=== PATIENT | female | born 1990 | race Caucasian/White ===

== ENCOUNTER 2020-10-22 12:34 | Outpatient (CLI) | payer OTHER | END 2020-10-22 12:35 | disposition critical access hospital (66) | LOC: EMS 12:34 | DX: R51.9 Headache, unspecified (principal); R68.84 Jaw pain; M54.2 Cervicalgia; M54.9 Dorsalgia, unspecified; R20.2 Paresthesia of skin | CPT/HCPCS: A0425; A0429 ==

== ENCOUNTER 2020-10-22 13:03 | Emergency (ER) | payer OTHER ==
[2020-10-22] MEDS ORDERED: DROPERIDOL 5 MG/2 ML VIAL IVP STA (14:22)
--- NOTE | 2020-10-22 14:26 | ED Physician Documentation ---
PD HPI FOCAL NEURO - Stated complaint Stated Complaint: R SIDE NUMBNESS - Chief complaint Chief Complaint: Neuro - History obtained from History obtained from: Patient - Additional information Additional information: 30-year-old woman with history of cataract surgery and migraines presents with headache, right-sided shoulder pain, and numbness and tingling of the face and right upper extremity. The headache started about 3 days ago. She was seen in urgent care and was felt to be related to TMJ. It does get worse if she chews. Then it was more at the TMJs, now more occipital and temporal. There is no associated nausea or light sensitivity. Starting yesterday she developed some right shoulder pain, tightness throughout the whole glenohumeral area. There is no pain with range of motion though. Today at 11:20 AM she was in her usual routine and noted numbness and tingling of the right face, upper chest wall and arm, not involving the leg. There is no weakness. Review of Systems Ten Systems: 10 systems reviewed and negative Constitutional: reports: Reviewed and negative Throat: reports: Reviewed and negative Cardiac: reports: Reviewed and negative Respiratory: reports: Reviewed and negative PD PAST MEDICAL HISTORY - Present Medications Home Medications: Ambulatory Orders Medication Instructions Recorded Confirmed SUMAtriptan [Imitrex] 25 mg PO BID PRN #10 tablet 10/22/20 - Allergies Allergies/Adverse Reactions: Allergies Allergy/AdvReac Type Severity Reaction Status Date / Time No Known Drug Allergies Allergy Verified 10/22/20 13:38 - Social History Does the pt smoke?: No Smoking Status: Never smoker Does the pt drink ETOH?: Yes Does the pt have substance abuse?: No PD ED PE NORMAL - Vitals Vital signs reviewed: Yes - General General: Alert and oriented X 3, No acute distress - HEENT HEENT: PERRL, EOMI - Neck Neck: Supple, no meningeal sign, No bony TTP - Cardiac Cardiac: RRR, No murmur - Respiratory Respiratory: No respiratory distress, Clear bilaterally - Abdomen Abdomen: Normal bowel sounds, Soft, Non tender - Back Back: No CVA TTP, No spinal TTP - Derm Derm: Normal color, Warm and dry - Neuro Neuro: Alert and oriented X 3, No motor deficit, No sensory deficit, Normal speech Eye Opening: Spontaneous Motor: Obeys Commands Verbal: Oriented GCS Score: 15 NIHSS - Time Time: 14:15 - Level of Consciousness Level of consciousness: (0) Alert, Keenly responsive LOC Questions: (0) Answers both Q's correct LOC Commands: (0) Performs both correctly - Gaze Best Gaze: (0) Normal - Visual Visual: (0) No loss - Facial Palsy Facial Palsy: (0) Normal, symmetrical movement - Motor Arms (both separate) Motor Arm (right): (0) No drift Motor Arm (left): (0) No drift - Motor Legs (both separate) Motor Leg (right): (0) No drift Motor Leg (left): (0) No drift - Limb Ataxia Limb Ataxia: (0) Absent - Sensory Sensory: (0) Normal - Best Language Best Language: (0) No aphasia - Dysarthria Dysarthria: (0) Normal - Extinction and Inattention (formally neg Extinction and inattention: (0) No abnormality - Total Score/Results Total Score/Result: 0 Results - Vitals Vitals: Vital Signs - 24 hr 10/22/20 10/22/20 10/22/20 13:03 13:17 15:15 Temperature 36.7 C 36.4 C L Heart Rate 72 78 61 Respiratory 16 19 16 Rate Blood Pressure 118/60 128/99 H 124/81 H O2 Saturation 97 99 97 Oxygen O2 Source Room air PD MEDICAL DECISION MAKING - ED course ED course: Her NIH stroke scale is 0, which is a contraindication to TPA and as such it was not given further consideration. After the administration of Haldol her tingling went away, however the headache persisted but resolved after Toradol. CT angiography of the head and neck were normal. Departure - Departure Disposition: 01 Home, Self Care Clinical Impression: Paresthesias Migraine Qualifiers: Migraine type: with aura Status migrainosus presence: with status migrainosus Intractability: not intractable Qualified Code(s): G43.101 - Migraine with aura, not intractable, with status migrainosus Condition: Good Record reviewed to determine appropriate education?: Yes Instructions: ED Headache Migraine, Imitrex Prescriptions: SUMAtriptan [Imitrex] 25 mg PO BID PRN #10 tablet PRN Reason: Headache Comments: Prescription sent electronically to [facility] in [place]. Return for new or worsening symptoms. Follow-up with your primary care physician, next available appointment.
[2020-10-22] MEDS ORDERED: IOPAMIDOL-300 50 ML VIAL ONE (14:29)
--- NOTE | 2020-10-22 15:04 | CT Report ---
PROCEDURE: ANGIO NECK W INDICATIONS: cva sx CONTRAST: IV CONTRAST: Isovue 300 ml: 80 PO CONTRAST: *NO PO CONTRAST TECHNIQUE: After the administration of intravenous contrast, 1.5 mm axial sections acquired from the aortic arch to the [place]. Coronal 3-D maximum intensity projection (MIP) and/or volume rendering ref ormats were then performed. For radiation dose reduction, the following was used: automated exposur e control, adjustment of mA and/or kV according to patient size. COMPARISON: Correlation is made with the accompanying head CT angiogram, 10/22/2020. FINDINGS: Image quality: Excellent. Carotid system: The great vessels demonstrate a conventional anatomy as they arise from the aortic a rch. The origins of the common carotid arteries appear patent. The common carotid arteries demonstr ate normal calibers and courses. The bifurcation regions appear normal bilaterally. The internal ca rotid arteries demonstrate normal caliber and course. Posterior circulation: The origins of the vertebral arteries appear patent. The more superior porti ons of the vertebral arteries demonstrate normal course and caliber. They join to form a normal appe aring basilar artery. Soft tissues: Visualized neck soft tissues demonstrate no suspicious abnormalities. The thyroid is normal in size and there are no incidental findings. Bones: No suspicious bony lesions. Visualized cervical spine appears normally aligned. IMPRESSION: No hemodynamically significant stenosis can be seen within the arteries of the neck. The estimate of stenosis included in the report of the imaging study was calculated using the NASCET method Reviewed by: Bandar Solano MD on 10/22/2020 2:03 PM [facility] Approved by: Bandar Solano MD on 10/22/2020 2:03 PM [facility] Station ID: [id number]
--- NOTE | 2020-10-22 15:05 | CT Report ---
PROCEDURE: ANGIO HEAD W/WO INDICATIONS: cva sx CONTRAST: IV CONTRAST: Isovue 300 ml: 80 PO CONTRAST: *NO PO CONTRAST TECHNIQUE: Precontrast 4.5 mm thick angled axial sections acquired from the foramen magnum to the vertex. Afte r the administration of intravenous contrast, 1 mm thick sections acquired through the [place] of [place] is. Postcontrast 4.5 mm thick sections then re-acquired from the foramen magnum to the vertex. 3-di mensional cnzhyeq-oyhruikhq-jiixpobqdf (MIP) and/or volume rendering reformats were acquired of the c entral intracranial vasculature. For radiation dose reduction, the following was used: automated ex posure control, adjustment of mA and/or kV according to patient size. COMPARISON: Correlation is made with the accompanying neck CT angiogram, 10/22/2020. FINDINGS: Image quality: There is streak artifact seen through the skull base. Anterior circulation: Intracranial internal carotid arteries are normal in size and flow. Note is m michelle of a diminutive left A1 segment, with a correspondingly robust right A1 segment. This is consider ed to be a developmental variant of no clinical consequence. The flow within the paired anterior cer ebral arteries is otherwise normal and symmetric. The flow within the middle cerebral arteries is no rmal and symmetric. The anterior communicating artery is seen. No aneurysms are seen. Posterior circulation: Visualized portions of the vertebral arteries demonstrate normal caliber, and join to form a normal appearing basilar artery. Flow within the posterior cerebral arteries is norm al and symmetric. No aneurysms are seen. CSF spaces: Ventricles are normal in size and shape. Basal cisterns are patent. No extra-axial flu id collections. Brain: No midline shift. No intracranial bleeds or masses. Carpenter-white matter interface appears int act. Skull and face: Calvarium and facial bones appear intact, without suspicious lesions. Sinuses: Visualized sinuses and mastoids are clear. IMPRESSION: No intracranial hemorrhage is seen. No significant intracranial abnormality is seen. No significant intracranial arterial abnormalities are seen. If there is strong clinical concern for a stroke, please consider a dedicated brain MRI for further e valuation (assuming that there is no contraindication to MRI). Reviewed by: Bandar Solano MD on 10/22/2020 2:04 PM [facility] Approved by: Bandar Solano MD on 10/22/2020 2:04 PM [facility] Station ID: [id number]
[2020-10-22] MEDS ORDERED: IOPAMIDOL-300 50 ML VIAL IVP ONE (15:09)
[2020-10-22 15:16] VITALS: BP 124/81
[2020-10-22] MEDS ORDERED: KETOROLAC 30 MG/ML VIAL IVP STA (15:34)
== END 2020-10-22 16:57 | disposition home or self-care (01) ==
LOC: ED 13:03
DX: G43.101 Migraine with aura, not intractable, with status migrainosus (principal); R20.2 Paresthesia of skin; M25.511 Pain in right shoulder
CPT/HCPCS: 70496; 70498; 96374; 96375; 99284; Q9967

== ENCOUNTER 2021-03-06 17:23 | Emergency (ER) | payer OTHER ==
[2021-03-06] MEDS ORDERED: DEXAMETHASONE 10 MG/ML VIAL PO STA (18:46)
[2021-03-06] MEDS ORDERED: CHERRY SYRUP 10 ML UDC PO ONE (18:46)
--- NOTE | 2021-03-06 18:47 | ED Physician Documentation ---
History of Present Illness - Stated complaint Stated Complaint: RIGHT ARM PX - Chief complaint Chief Complaint: Ext Problem - Additonal information Additional information: 30-year-old female presents emergency department for evaluation of acute right wrist pain Began this afternoon. 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 She sometimes wakes up at night and finds that her arm is numb. No swelling. No fevers. Review of Systems Constitutional: denies: Fever, Chills Eyes: reports: Loss of vision Ears: reports: Reviewed and negative Cardiac: reports: Reviewed and negative Respiratory: reports: Reviewed and negative GI: reports: Reviewed and negative Musculoskeletal: reports: Joint pain (Right wrist) Neurologic: reports: Reviewed and negative Psychiatric: reports: Reviewed and negative PD PAST MEDICAL HISTORY - Present Medications Home Medications: Ambulatory Orders Medication Instructions Recorded Confirmed SUMAtriptan [Imitrex] 25 mg PO BID PRN #10 tablet 10/22/20 - Allergies Allergies/Adverse Reactions: Allergies Allergy/AdvReac Type Severity Reaction Status Date / Time No Known Drug Allergies Allergy Verified 03/06/21 17:41 - Social History Does the pt smoke?: No Smoking Status: Never smoker Does the pt drink ETOH?: Yes Does the pt have substance abuse?: No PD ED PE EXPANDED - General General: Alert, No acute distress - Extremities Extremities: Right wrist (no swelling, deformity. bilateral thenar eminence normal withotu atrophy. + phalens Right wrist. normal consulting property manager and grasp. normal strength at wrist, elbow and shoulders) Results - Vitals Vitals: Vital Signs - 24 hr 03/06/21 17:39 Temperature 36.3 C L Heart Rate 65 Respiratory 16 Rate Blood Pressure 139/84 H O2 Saturation 99 Oxygen O2 Source Room air PD MEDICAL DECISION MAKING - ED course Complexity details: considered differential, d/w patient ED course: 30-year-old female presents emergency department for evaluation of acute right wrist pain that radiates up her forearm today. No recent falls or trauma no swelling or erythema. 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 She does have a positive Phalen's in the ulnar distribution. History and exam is consistent with acute carpal tunnel. She was given a wrist splint to wear at night advised ibuprofen and Tylenol as well as stretching exercises. Encourage close follow-up with primary care provider. If symptoms worsen may benefit from physical therapy or if more severe referral to hand surgeon. Departure - Departure Disposition: 01 Home, Self Care Clinical Impression: Carpal tunnel syndrome of right wrist Condition: Stable Record reviewed to determine appropriate education?: Yes Instructions: Carpal Tunnel Syndrome, ED Carpal Tunnel Comments: You were seen in the emergency department today for pain in your right wrist that radiates up the arm. Your history and exam is consistent with carpal tunnel syndrome. It is important that you wear the wrist splint given to you at night to help prevent flexion of the wrist which can worsen this condition. You were given a one-time dose of Decadron here in the ER which should help over the next 12 to 72 hours. In general would like you to take Tylenol 500 mg with food 2-3 times a day or alternatively ibuprofen 600 mg with food 2-3 times a day. Please look up carpal tunnel stretching exercises which many people find helpful. Please discuss this ED visit with your primary care doctor. If your symptoms persist or worsen you may benefit from referral to physical therapy or if they become severe you may need referral to a hand surgeon to discuss carpal tunnel release surgery.
[2021-03-06 19:03] VITALS: BP 131/83
== END 2021-03-06 19:03 | disposition home or self-care (01) ==
LOC: ED 17:23
DX: G56.01 Carpal tunnel syndrome, right upper limb (principal)
CPT/HCPCS: 99282; 99283; A9270

== ENCOUNTER 2021-04-05 18:00 | Emergency (ER) | payer OTHER ==
[2021-04-05 18:08] VITALS: BP 128/82
--- NOTE | 2021-04-05 19:36 | ED Physician Documentation ---
History of Present Illness - Stated complaint Stated Complaint: DIZZINESS,LIGHTHEAD - Chief complaint Chief Complaint: Neuro - Additonal information Additional information: 30-year-old female presents emergency department for evaluation of a right-sided frontal headache with associated light sensitivity. Headache began about 2 to 3 days ago. She does have some nausea but no vomiting. Denies abdominal pain dysuria urgency or frequency. She did state that about a week ago she had a low-grade temperature elevation of 99.9. Rapid Covid test at home was negative. Patient is somewhat anxious. Reports that her went on deployment and she just wants to make sure that she is okay as she has kids to care for her at home. Review of Systems Constitutional: reports: Fever. denies: Chills Eyes: reports: Photophobia Ears: reports: Reviewed and negative Nose: reports: Reviewed and negative Throat: reports: Reviewed and negative Cardiac: reports: Reviewed and negative Respiratory: reports: Reviewed and negative GI: reports: Reviewed and negative Skin: reports: Reviewed and negative Neurologic: reports: Headache Psychiatric: reports: Anxiety Endocrine: reports: Reviewed and negative PD PAST MEDICAL HISTORY - Present Medications Home Medications: Ambulatory Orders Medication Instructions Recorded Confirmed SUMAtriptan [Imitrex] 25 mg PO BID PRN #10 tablet 10/22/20 - Allergies Allergies/Adverse Reactions: Allergies Allergy/AdvReac Type Severity Reaction Status Date / Time No Known Drug Allergies Allergy Verified 04/05/21 18:08 - Social History Does the pt smoke?: No Smoking Status: Never smoker Does the pt drink ETOH?: Yes Does the pt have substance abuse?: No PD ED PE NORMAL - General General: Alert and oriented X 3, No acute distress, Well developed/nourished - HEENT HEENT: Atraumatic, Ears normal, Moist mucous membranes, Pharynx benign - Neck Neck: Supple, no meningeal sign, No adenopathy - Cardiac Cardiac: RRR, No murmur, No gallop - Respiratory Respiratory: No respiratory distress, Clear bilaterally - Abdomen Abdomen: Normal bowel sounds, Soft, Non tender - Back Back: No CVA TTP - Derm Derm: Normal color, Warm and dry, No rash - Extremities Extremities: No deformity, No tenderness to palpate, Normal ROM s pain - Neuro Neuro: Alert and oriented X 3, 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 She also reports that she had a low-grade temperature elevation about 1 week ago but did test negative for Covid. She is quite anxious as her is away on deployment she wants to ensure that she is feeling well. She does have a history of migraines and this is not different from her typical pattern but the fever a week ago did concern her. On presentation she has no focal findings no neck pain. This is not the worst headache of life. Low suspicion for an infectious or subarachnoid etiology. Patient was given a liter of IV fluids as well as Compazine and Benadryl with marked improvement in her headache. Patient was then given a dose of Decadron. She is feeling better and request to be discharged home. Advise follow-up with primary care provider. Emergent return precautions otherwise discussed. Departure - Departure Disposition: 01 Home, Self Care Clinical Impression: Migraine Qualifiers: Migraine type: unspecified Status migrainosus presence: without status migrainosus Intractability: not intractable Qualified Code(s): G43.909 - Migraine, unspecified, not intractable, without status migrainosus Condition: Stable Record reviewed to determine appropriate education?: Yes Instructions: ED Headache Migraine Comments: Libia saenz were seen in the emergency department today for feeling generally unwell. Your primary concern was the headache. We did give you a liter of IV fluid as well as some Compazine and Benadryl. This is a typical regimen of medications that will usually make migraine headaches go away. I am glad that you are feeling better. I recommend that you go home tonight drink a lot of water and try and get plenty of sleep. Over the next few days I would expect your symptoms to be steadily improving. If at any point you develop a sudden severe headache, have uncontrolled vomiting, severe belly pain then please return immediately to the ER for second evaluation
[2021-04-05] MEDS ORDERED: diphenhydrAMINE INJ 50 MG/ML VIAL IVP STA (19:37)
[2021-04-05] MEDS ORDERED: PROCHLORPERAZINE 10 MG/2 ML VIAL IVP STA (19:37)
[2021-04-05] MEDS ORDERED: SODIUM CHLORIDE 0.9% 1,000 ML IV STA (19:38)
[2021-04-05] MEDS ORDERED: CHERRY SYRUP 10 ML UDC PO ONE (20:25)
[2021-04-05] MEDS ORDERED: DEXAMETHASONE 10 MG/ML VIAL PO STA (20:25)
== END 2021-04-05 21:22 | disposition home or self-care (01) ==
LOC: ED 18:00
DX: G43.909 Migraine, unspecified, not intractable, without status migrainosus (principal)
CPT/HCPCS: 96374; 99283; A9270; J1200

== ENCOUNTER 2021-04-14 12:47 | Outpatient (CLI) | payer OTHER ==
--- NOTE | 2021-04-14 13:34 | XRAY Report ---
PROCEDURE: Shoulder 3 View RT INDICATIONS: RIGHT SHOULDER PAIN TECHNIQUE: 3 views of the shoulder were acquired. COMPARISON: None. FINDINGS: Bones: No fractures or dislocations. No suspicious bony lesions. Visualized ribs appear intact. Soft tissues: No suspicious soft tissue calcifications. The visualized lung demonstrates a normal a ppearance. IMPRESSION: Normal shoulder plain films. If it would be helpful for clinical management decision making, please consider a dedicated, schedule d shoulder MRI for further evaluation (assuming that there is no contraindication). Reviewed by: Bandar Solano MD on 04/14/2021 12:32 PM [facility] Approved by: Bandar Solano MD on 04/14/2021 12:32 PM [facility] Station ID: [id number]
== END 2021-04-14 12:48 | disposition home or self-care (01) ==
LOC: DI.N 12:47
PROVIDERS: ATTEND Family Medicine
DX: M25.511 Pain in right shoulder (principal)

== ENCOUNTER 2021-04-20 14:01 | Observation (INO) | payer OTHER ==
--- NOTE | 2021-04-20 14:28 | ED Physician Documentation ---
PD HPI CHEST PAIN - Stated complaint Stated Complaint: RAPID HR/R ARM PAIN - Chief complaint Chief Complaint: Cardiac - History obtained from History obtained from: Patient - Additional information Additional information: 30-year-old woman has been having a sensation of a fast heart rate on and off for the last few days. She has an apple watch and she is noted some tachycardia's into the 120s or so but it did not alarm for any arrhythmias. Today she was working out lightly, because of the recent palpitations she was not exerting too hard but started to feel sharp right upper nonradiating chest pain that is mostly gone at this point. She was short of breath with it. Her heart rate was in the 120s with it. She does not have any identifiable risk factors for thromboembolic disease. She is on Mirena IUD, not anticoagulated, no recent travel, no hemoptysis or family history of same. She has had some mild left calf pain without swelling for the last few days. Review of Systems Ten Systems: 10 systems reviewed and negative Constitutional: reports: Weight Loss (A few pounds, not particularly intended). denies: Fever, Chills Cardiac: reports: Chest pain / pressure, Calf pain. denies: Palpitations, Pedal edema Respiratory: reports: Dyspnea. denies: Cough, Hemoptysis GI: denies: Constipation PD PAST MEDICAL HISTORY - Past Medical History Past Medical History: No - Present Medications Home Medications: Ambulatory Orders Medication Instructions Recorded Confirmed SUMAtriptan [Imitrex] 25 mg PO BID PRN #10 tablet 10/22/20 - Allergies Allergies/Adverse Reactions: Allergies Allergy/AdvReac Type Severity Reaction Status Date / Time ibuprofen Allergy Unknown Verified 04/20/21 14:10 - Social History Does the pt smoke?: No Smoking Status: Never smoker Does the pt drink ETOH?: Yes Does the pt have substance abuse?: No PD ED PE NORMAL - Vitals Vital signs reviewed: Yes - General General: Alert and oriented X 3, No acute distress - HEENT HEENT: PERRL, EOMI - Neck Neck: Supple, no meningeal sign, No bony TTP - Cardiac Cardiac: RRR, No murmur - Respiratory Respiratory: No respiratory distress, Clear bilaterally - Abdomen Abdomen: Normal bowel sounds, Soft, Non tender - Back Back: No CVA TTP, No spinal TTP - Derm Derm: Normal color, Warm and dry - Extremities Extremities: No edema, No calf tenderness / cord - Neuro Neuro: Alert and oriented X 3, Normal speech Results - Vitals Vitals: Vital Signs - 24 hr 04/20/21 04/20/21 14:07 14:21 Temperature 36.2 C L 36.5 C Heart Rate 113 H 113 H Respiratory 16 16 Rate Blood Pressure 133/92 H 133/92 H O2 Saturation 98 98 Oxygen O2 Source Room air - EKG (time done) 1414 Rate: Rate (enter#) (75) Rhythm: NSR Dubois: Normal Intervals: Normal RI QRS: Normal Ischemia: Normal ST segments - Labs Labs: Laboratory Tests 04/20/21 04/20/21 04/20/21 14:34 14:34 14:34 WBC 11.3 H RBC 4.58 Hgb 13.8 Hct 40.5 MCV 88.4 MCH 30.1 MCHC 34.1 RDW 12.8 Plt Count 330 MPV 9.5 Neut # (Auto) 9.2 H Lymph # (Auto) 1.5 [place] # (Auto) 0.5 Eos # (Auto) 0.1 Baso # (Auto) 0.0 Absolute Nucleated RBC 0.00 Nucleated RBC % 0.0 ESR D-Dimer 269.6 H Sodium 140 Potassium 3.9 Chloride 104 Carbon Dioxide 26 Anion Gap 10.0 BUN 9 Creatinine 0.7 Estimated GFR (MDRD) 97 Glucose 122 H Calcium 10.4 H Total Creatine Kinase CK-MB (CK-2) Troponin I High Sens C-Reactive Protein TSH Serum HCG, Qual Nasal Adenovirus (PCR) Nasal B. parapertussis DNA (PCR) Nasal Coronavir 229E PCR Nasal Coronavir HKU1 PCR Nasal Coronavir NL63 PCR Nasal Coronavir OC43 PCR Nasal Enterovir/Rhinovir PCR Nasal Influenza B PCR Nasal Influenza A PCR Nasal Parainfluen 1 PCR Nasal Parainfluen 2 PCR Nasal Parainfluen 3 PCR Nasal Parainfluen 4 PCR Nasal RSV (PCR) Nasal B.pertussis DNA PCR Nasal C.pneumoniae (PCR) Enoc Human Metapneumo PCR Nasal M.pneumoniae (PCR) Nasal SARS-CoV-2 (PCR) 04/20/21 04/20/21 04/20/21 14:34 14:34 14:34 WBC RBC Hgb Hct MCV MCH MCHC RDW Plt Count MPV Neut # (Auto) Lymph # (Auto) [place] # (Auto) Eos # (Auto) Baso # (Auto) Absolute Nucleated RBC Nucleated RBC % ESR D-Dimer Sodium Potassium Chloride Carbon Dioxide Anion Gap BUN Creatinine Estimated GFR (MDRD) Glucose Calcium Total Creatine Kinase CK-MB (CK-2) Troponin I High Sens 21.9 H* C-Reactive Protein TSH 0.69 Serum HCG, Qual NEGATIVE Nasal Adenovirus (PCR) Nasal B. parapertussis DNA (PCR) Nasal Coronavir 229E PCR Nasal Coronavir HKU1 PCR Nasal Coronavir NL63 PCR Nasal Coronavir OC43 PCR Nasal Enterovir/Rhinovir PCR Nasal Influenza B PCR Nasal Influenza A PCR Nasal Parainfluen 1 PCR Nasal Parainfluen 2 PCR Nasal Parainfluen 3 PCR Nasal Parainfluen 4 PCR Nasal RSV (PCR) Nasal B.pertussis DNA PCR Nasal C.pneumoniae (PCR) Enoc Human Metapneumo PCR Nasal M.pneumoniae (PCR) Nasal SARS-CoV-2 (PCR) 04/20/21 04/20/21 04/20/21 14:34 15:08 16:24 WBC RBC Hgb Hct MCV MCH MCHC RDW Plt Count MPV Neut # (Auto) Lymph # (Auto) [place] # (Auto) Eos # (Auto) Baso # (Auto) Absolute Nucleated RBC Nucleated RBC % ESR 2 D-Dimer Sodium Potassium Chloride Carbon Dioxide Anion Gap BUN Creatinine Estimated GFR (MDRD) Glucose Calcium Total Creatine Kinase 76 CK-MB (CK-2) Troponin I High Sens 22.8 H* C-Reactive Protein < 1.0 TSH Serum HCG, Qual Nasal Adenovirus (PCR) Nasal B. parapertussis DNA (PCR) Nasal Coronavir 229E PCR Nasal Coronavir HKU1 PCR Nasal Coronavir NL63 PCR Nasal Coronavir OC43 PCR Nasal Enterovir/Rhinovir PCR Nasal Influenza B PCR Nasal Influenza A PCR Nasal Parainfluen 1 PCR Nasal Parainfluen 2 PCR Nasal Parainfluen 3 PCR Nasal Parainfluen 4 PCR Nasal RSV (PCR) Nasal B.pertussis DNA PCR Nasal C.pneumoniae (PCR) Enoc Human Metapneumo PCR Nasal M.pneumoniae (PCR) Nasal SARS-CoV-2 (PCR) 04/20/21 04/20/21 16:24 16:33 WBC RBC Hgb Hct MCV MCH MCHC RDW Plt Count MPV Neut # (Auto) Lymph # (Auto) [place] # (Auto) Eos # (Auto) Baso # (Auto) Absolute Nucleated RBC Nucleated RBC % ESR D-Dimer Sodium Potassium Chloride Carbon Dioxide Anion Gap BUN Creatinine Estimated GFR (MDRD) Glucose Calcium Total Creatine Kinase CK-MB (CK-2) 1.2 Troponin I High Sens 21.3 H* C-Reactive Protein TSH Serum HCG, Qual Nasal Adenovirus (PCR) NOT DETECTED Nasal B. parapertussis DNA (PCR) NOT DETECTED Nasal Coronavir 229E PCR NOT DETECTED Nasal Coronavir HKU1 PCR NOT DETECTED Nasal Coronavir NL63 PCR NOT DETECTED Nasal Coronavir OC43 PCR NOT DETECTED Nasal Enterovir/Rhinovir PCR NOT DETECTED Nasal Influenza B PCR NOT DETECTED Nasal Influenza A PCR NOT DETECTED Nasal Parainfluen 1 PCR NOT DETECTED Nasal Parainfluen 2 PCR NOT DETECTED Nasal Parainfluen 3 PCR NOT DETECTED Nasal Parainfluen 4 PCR NOT DETECTED Nasal RSV (PCR) NOT DETECTED Nasal B.pertussis DNA PCR NOT DETECTED Nasal C.pneumoniae (PCR) NOT DETECTED Enoc Human Metapneumo PCR NOT DETECTED Nasal M.pneumoniae (PCR) NOT DETECTED Nasal SARS-CoV-2 (PCR) NOT DETECTED PD MEDICAL DECISION MAKING - ED course ED course: 30-year-old woman presents with right upper chest pain after having some tachycardias over the last few days. Her EKG is nonischemic but she was found to have mildly elevated high-sensitivity troponin which trended up very slightly on a 2nd rapid quick draw. TSH was normal. D-dimer positive but CT angiography of the chest was negative. Her chest pain was very mild, but given the elevated troponins I did discuss the case with Dr. Wong at [facility] who recommended further testing including but not limited to CK, CK-MB, further trending of the troponins, ESR/CRP to evaluate for inflammatory/autoimmune states, and COVID testing to evaluate for potential myocarditis. Recommended the patient be placed in observation for evaluation and I spoke with Dr. Levy for this at 4:28 PM. Departure - Departure Disposition: ED Place in Observation Clinical Impression: Tachycardia, Chest pain, Elevated troponin Condition: Stable Discharge Date/Time: 04/20/21 17:45
[2021-04-20 14:39] LABS: BASOPHILS % (AUTO) 0.3 %; EOSINOPHILS # (AUTO) 0.1 10^3/uL (0.0-0.7); EOSINOPHILS % (AUTO) 0.4 %; HCT - HEMATOCRIT 40.5 % (37.0-47.0); HGB - HEMOGLOBIN 13.8 g/dL (12.0-16.0); LYMPHOCYTES # (AUTO) 1.5 10^3/uL (1.5-3.5); LYMPHOCYTES % (AUTO) 13.6 %; MEAN CORPUSCULAR HEMOGLOBIN 30.1 pg (27.0-31.0); MEAN CORPUSCULAR HGB CONC 34.1 g/dL (32.0-36.0); MEAN CORPUSCULAR VOLUME 88.4 fL (81.0-99.0); MEAN PLATELET VOLUME 9.5 fL (7.9-10.8); MONOCYTES # (AUTO) 0.5 10^3/uL (0.0-1.0); NEUTROPHILS # (AUTO) 9.2 10^3/uL (1.5-6.6); NEUTROPHILS % (AUTO) 81.4 %; PLT - PLATELET COUNT 330 10^3/uL (130-450); RED BLOOD COUNT 4.58 10^6/uL (4.20-5.40); RED CELL DISTRIBUTION WIDTH 12.8 % (12.0-15.0); WHITE BLOOD COUNT 11.3 x10^3/uL (4.8-10.8)
[2021-04-20 14:52] LABS: CALCIUM 10.4 mg/dL (8.5-10.3); CREATININE 0.7 mg/dL (0.4-1.0); POTASSIUM 3.9 mmol/L (3.5-5.0)
--- NOTE | 2021-04-20 14:55 | XRAY Report ---
PROCEDURE: Chest 1 View X-Ray INDICATIONS: chest pain TECHNIQUE: One view of the chest was acquired. COMPARISON: None. FINDINGS: Surgical changes and devices: None. Lungs and pleura: No pleural effusions or pneumothorax. Lungs are clear. Mediastinum: Mediastinal contours appear normal. Heart size is normal. Bones and chest wall: No suspicious bony lesions. Overlying soft tissues appear unremarkable. IMPRESSION: Normal portable chest. Reviewed by: Bandar Solano MD on 04/20/2021 1:53 PM [facility] Approved by: Bandar Solano MD on 04/20/2021 1:53 PM [facility] Station ID: [id number]
[2021-04-20] MEDS ORDERED: IOVERSOL 320 100 ML VIAL IVP ONE ×2 (15:12→15:30)
--- NOTE | 2021-04-20 15:38 | CT Report ---
PROCEDURE: ANGIO CHEST W/WO INDICATIONS: CP, high dimer, pe protocol CONTRAST: IV CONTRAST: Optiray 320 ml: 80 PO CONTRAST: *NO PO CONTRAST TECHNIQUE: After the administration of intravenous contrast, 2 mm axial images were acquired from the pulmonary apices to the posterior costophrenic angles during the arterial phase. In addition, 1 mm lung kernel and 5 mm soft tissue kernel reconstructions were performed. 3-dimensional coronal oblique maximum int ensity projection (MIP) reformats, 8 mm axial MIP, and 5 mm coronal and sagittal MPR reformats were t hen performed through the thorax. For radiation dose reduction, the following was used: automated exp osure control, adjustment of mA and/or kV according to patient size. COMPARISON: Correlation is made with the accompanying chest radiograph, 04/20/2021. FINDINGS: Image quality: Excellent. Pulmonary arteries: Pulmonary arteries are normal in size, and demonstrate no intraluminal filling d efects to suggest central pulmonary embolism. Lungs and pleura: Lungs are clear. No pleural effusions or pneumothorax. Central and peripheral ai rways are patent. Mediastinum: Heart size is normal, without pericardial effusion. No mediastinal or hilar adenopathy . Thoracic aorta is normal in caliber and enhancement. Esophagus is normal in caliber, without hiat al hernia. Bones and chest wall: No suspicious bony lesions. Ribs and thoracic spine appear intact throughout. No axillary or supraclavicular adenopathy. The thyroid is normal in size and there are no incident al findings. Abdomen: An accessory splenule is incidentally noted along the hilum of the primary spleen. Visua lized upper abdominal solid organs appear normal in the early arterial phase of enhancement. IMPRESSION: Negative for pulmonary motion. Clear lungs. Incidental note is made of: Accessory splenule Reviewed by: Bandar Solano MD on 04/20/2021 2:[address] [facility] Approved by: Bandar Solano MD on 04/20/2021 2:[address] [facility] Station ID: [id number]
[2021-04-20] MEDS ORDERED: ASPIRIN CHEW 81 MG TABLET PO STA (15:48)
[2021-04-20 16:27] LABS: HCG,QUALITATIVE BLOOD NEGATIVE
[2021-04-20] MEDS ORDERED: ACETAMINOPHEN 325 MG TABLET PO PRN (16:34)
[2021-04-20] MEDS ORDERED: SODIUM CHLORIDE FLUSH 0.9% 10 ML SYRINGE IVP PRN (16:34)
[2021-04-20] MEDS ORDERED: SUMAtriptan 25 MG TABLET PO PRN (16:39)
--- NOTE | 2021-04-20 16:44 | HISTORY & PHYSICAL EXAMINATION ---
Chief Complaint - Chief Complaint Chief Complaint: PAlpitations History of Present Illness - Admitted From Admitted From:: ED - History Obtained From History obtained from: ED provoder and the patient - History of Present Illness HPI Comment/Other: This is a 30 y/o female with Hx of migraines on prn Imitrex. For the last 2 days she noticed resting tachycardia several times on her Apple watch, HR 120-130. There were no sx of pain, SOB or lightheadedness during these. She went to [facility] usual gym work-out today and noticed R upper chest wall pressure and more SOB than usual. She presented to the ED. She was in sinus tach at rate 110 and had normal BP. Her TSH was normal and test neg. Her D-dimer was mildly elevated and there was mild calf pain, thus she had a CTA which was neg for PE. The ED provider called Cardiology at [facility] and it was recommended that she have a W/U for auto-immune disease and have telemetry monitoring, an Echo and a stress test. She is being placed in Observation status for these. History - Past Medical History Cardiovascular: reports: None Respiratory: reports: None Neuro: reports: Migraines Endocrine/Autoimmune: reports: None GI: reports: None PLUG WIRER: reports: None : reports: None HEENT: reports: None Psych: reports: None Musculoskeletal: reports: None Derm: reports: None Meds/Allgy - Home Medications Home Medications: Ambulatory Orders Medication Instructions Recorded Confirmed SUMAtriptan [Imitrex] 25 mg PO BID PRN #10 tablet 10/22/20 - Allergies Allergies/Adverse Reactions: Allergies Allergy/AdvReac Type Severity Reaction Status Date / Time ibuprofen Allergy Unknown Verified 04/20/21 14:10 Review of Systems - Cardiovascular Cariovascular: reports: Palpitations, Chest pain, Exertional dyspnea - Respiratory Respiratory: reports: SOB with exertion - All Other Systems All Other Systems: reports: Reviewed and negative Exam - Vital Signs Vital Signs: Vital Signs x48h Temp Pulse Resp BP Pulse Ox 04/20/21 14:21 36.5 C 113 H 16 133/92 H 98 04/20/21 14:07 36.2 C L 113 H 16 133/92 H 98 Conclusion/Plan - Problem List (1) Tachycardia Conclusion/Plan: Will monitor her for arrhythmias on telemetry. We will obtain an Echocardiogram (but today is Thursday night and we have no Echo service available here till Thursday morning). (2) Chest pain Conclusion/Plan: The work-up for connective tissue disease was sent off from the ER, as was recommended by the service unit operator oil well to the ED provider. We will monitor for chest pain and evaluate her while she is having it. We will obtain an Echocardiogram to rule out pericarditis (but today is Thursday and we do not have the service available till Thursday). We will plan a stress test (but today is Thursday and we do not have the service available till Thursday). (3) Hx of migraines Conclusion/Plan: This diagnosis is associated with a higher incidence of PFO than the usual 20% that is found in the population. Will therefore check for PFO during her Echo exam, using bubble study. We will continue the as needed Imitrex order. - Lab Results Fish Bones: 04/20/21 14:34 04/20/21 14:34
[2021-04-20 16:48] LABS: CK- CREATINE KINASE 76 IU/L (22-269)
[2021-04-20 16:50] LABS: CREATINE KINASE MB 1.2 ng/mL (0.6-6.3)
[2021-04-20 16:51] LABS: CRP - C-REACTIVE PROTEIN < 1.0 mg/dL (0-1.0)
[2021-04-20 16:53] LABS: TROPONIN I HIGH SENSITIVITY 21.3 ng/L (2.3-14.8)
[2021-04-20 16:54] LABS: BILIRUBIN,URINE NEGATIVE (NEGATIVE); GLUCOSE, URINE (UA) NEGATIVE (NEGATIVE); KETONES,URINE (UA) NEGATIVE (NEGATIVE); LEUKOCYTE ESTERASE, URINE NEGATIVE (NEGATIVE); NITRITE,URINE NEGATIVE (NEGATIVE); OCCULT BLOOD,URINE NEGATIVE (NEGATIVE); PH,URINE 7.5 PH (5.0-7.5); PROTEIN,URINE NEGATIVE (NEGATIVE); UROBILINOGEN,URINE 0.2 (NORMAL) E.U./dL (NORMAL)
[2021-04-20 16:59] LABS: CLARITY,URINE CLEAR (CLEAR); HCG UR QUAL NEGATIVE
[2021-04-20 17:33] LABS: B. PARAPERTUSSIS- RESP PCR PAN NOT DETECTED; B. PERTUSSIS- RESP PCR PANEL NOT DETECTED; C. PNEUMONIAE- RESP PCR PANEL NOT DETECTED; CORONAVIRUS 229E-RESP PCR NOT DETECTED; CORONAVIRUS HKU1-RESP PCR NOT DETECTED; CORONAVIRUS NL63-RESP PCR NOT DETECTED; CORONAVIRUS OC43-RESP PCR NOT DETECTED; HUMAN METAPNEUMOVIRUS NOT DETECTED; INFLUENZA A- RESP PCR PANEL NOT DETECTED; INFLUENZA B - RESP PCR PANEL NOT DETECTED; M. PNEUMONIAE- RESP PCR PANEL NOT DETECTED; PARAINFLUENZA VIRUS 1 NOT DETECTED; PARAINFLUENZA VIRUS 2 NOT DETECTED; PARAINFLUENZA VIRUS 3 NOT DETECTED; PARAINFLUENZA VIRUS 4 NOT DETECTED; RHINOVIRUS/ENTEROVIRUS NOT DETECTED; RSV- RESP PCR PANEL NOT DETECTED; SARS-CoV-2 -RESP PCR PANEL NOT DETECTED
[2021-04-20] MEDS: SODIUM CHLORIDE FLUSH 0.9% 10 ML SYRINGE IVP SCH (19:23)
[2021-04-21] MEDS: SODIUM CHLORIDE FLUSH 0.9% 10 ML SYRINGE IVP SCH ×2 (01:50→07:52)
[2021-04-21 07:24] VITALS: BP 127/77
--- NOTE | 2021-04-21 08:20 | Discharge Plan ---
Discharge Plan Problem Reviewed?: Yes Disposition: Home, Self Care Condition: Stable Diet: Regular Activity Restrictions: No Restrictions Shower Restrictions: No Driving Restrictions: No Instruction Topics: Heart Palpitations Health Concerns: You were monitored in the hospital on telemetry heart monitoring to watch for a fast heart rhythm, and no abnormal findings were seen on telemetry monitoring. I suspect that you saw the fast heart rates on your Apple watch because you were still dehydrated and feeling the affects of the gastroenteritis that you had a week ago (that gave you nausea and diarrhea). Please drink extra fluids for the next 2-3 days to rehydrate. You should see your Primary Care Provider in the next week, for a hospital follow-up visit, and to get an order for having an outpatient Echocardiogram. Plan of Treatment: As above. Care Goals: Improvement in symptoms and stabilization are the goals. Assessment: The patient understands and is agreeable with the plan. Additional Instructions or Follow Up instructions: If you have new or worsening symptoms, call your PCP for advice or come to the ED. No Smoking: If you smoke, Please STOP! Call for help. Follow-up with: Serene Montes ARNP [Primary Care Provider] -
--- NOTE | 2021-04-21 10:30 | DISCHARGE SUMMARY ---
Discharge Summary Admit Date: 04/20/21 Discharge Date: 04/21/21 Discharging Provider: Dr Marta Levy Primary Care Provider: MIGUEL Montes Code Status: Attempt Resuscitation Condition at Discharge: Stable Discharge Disposition: 01 Home, Self Care - HPI History of Present Illness: This is a 30 y/o female with Hx of migraines on prn Imitrex. For the last 2 days she noticed resting tachycardia several times on her Apple watch, HR 120-130. There were no sx of pain, SOB or lightheadedness during these. She did give a Hx of recent 1 week of nausea and diarrhea. She resumed her usual gym work-out today and noticed R upper chest wall pressure and more SOB than usual. She therefore presented to the ED. She was in sinus tach at rate 110 and had normal BP. Her TSH was normal and test neg. Her D-dimer was mildly elevated and there was mild calf pain, thus she had a CTA which was neg for PE. The ED provider called Cardiology at [facility] and it was recommended that she have a W/U for auto-immune disease and have telemetry monitoring, an Echo and possibly a stress test. She is being placed in Observation status for these. - HOSPITAL COURSE Hospital Course: (1) Tachycardia We monitored her for arrhythmias on telemetry and there was nothing unusual seen. We ordered an Echocardiogram (but she was here Thursday night and Sun, and we have no Echo service available then). Most likely she was still dehydrated from the 1 week of gastroenteritis-like symptoms. She was advised to stay hydrated and see her PCP for follow-up in the upcoming week for further testing. (2) Chest pain The work-up for connective tissue disease was sent off from the ER, as was recommended by the Hotel Recreational Facilities Manager to the ED provider. They are send out tests and were pending at discharge. Her troponins and EKG were not significant. We monitored her for chest pain and she had none. We ordered the Echo, to look for pericarditis, but no Echo could be done (no Echo service available). (We also do not have stress testing service available on weekends, when she was here). (3) Hx of migraines This diagnosis is associated with a higher incidence of PFO than the usual 20% that is found in the general population. We therefore ordered for a PFO eval du ring the Echo exam, by ordering a "bubble" study, but there was no Echo service available. We continued the prn Imitrex order. - ALLERGIES Allergies/Adverse Reactions: Allergies Allergy/AdvReac Type Severity Reaction Status Date / Time ibuprofen Allergy Unknown Verified 04/20/21 14:10 - MEDICATIONS Home Medications: Ambulatory Orders Medication Instructions Recorded Confirmed SUMAtriptan [Imitrex] 25 mg PO BID PRN #10 tablet 10/22/20 - PHYSICAL EXAM AT DISCHARGE General Appearance: positive: No acute distress, Alert Eyes Bilateral: positive: Normal inspection, EOMI ENT: positive: ENT inspection nml, No signs of dehydration Neck: positive: Nml inspection, Thyroid nml, No JVD Respiratory: positive: Chest non-tender, No respiratory distress, Breath sounds nml Cardiovascular: positive: Regular rate & rhythm, No murmur Abdomen: positive: Non-tender, Nml bowel sounds, No distention Skin: positive: Warm, Dry Extremities: positive: Non-tender, No pedal edema Neurologic/Psychiatric: positive: Oriented x3 (Non-focal) - LABS Result Diagrams: 04/20/21 14:34 04/20/21 14:34 - DIAGNOSTIC IMAGING Diagnostic Imaging Results: Final report reviewed - FOLLOW UP Follow Up: See PCP in several days, further testing advised. - TIME SPENT Time Spent in Discharge (Minutes): 30
== END 2021-04-21 10:50 | disposition home or self-care (01) ==
LOC: EDSEX → ED 14:01 → EDSEX 16:34 → MS2 16:34
PROVIDERS: ADMIT Internal Medicine; ATTEND Internal Medicine
DX: R00.0 Tachycardia, unspecified (principal); R06.02 Shortness of breath; R07.9 Chest pain, unspecified; R77.8 Other specified abnormalities of plasma proteins; M79.601 Pain in right arm; M79.669 Pain in unspecified lower leg; G43.909 Migraine, unspecified, not intractable, without status migrainosus; Z20.822 Contact with and (suspected) exposure to COVID-19; Z32.02 Encounter for pregnancy test, result negative; Z88.6 Allergy status to analgesic agent
CPT/HCPCS: 0202U; 36415; 71045; 71275; 80048; 81003; 81025; 82550; 82553; 84443; 84484; 84703; 85025; 85379; 85651; 86140; 93005; 99284; 99285; A9270; G0378; Q9967; 81001; 87086

== ENCOUNTER 2021-04-25 11:01 | Outpatient (CLI) | payer OTHER ==
[2021-04-25 18:09] LABS: CALCIUM 9.5 mg/dL (8.5-10.3); URIC ACID 3.9 mg/dL (2.6-7.2)
== END 2021-04-25 11:02 | disposition home or self-care (01) ==
LOC: LAB.N 11:01 → EDSEX 11:01 → LAB.N 11:02
PROVIDERS: ATTEND Registered Nurse
DX: E83.52 Hypercalcemia (principal); M79.674 Pain in right toe(s)
CPT/HCPCS: 36415; 82310; 84550

== ENCOUNTER 2021-05-01 08:00 | Outpatient (CLI) | payer OTHER ==
[2021-05-01 18:00] LABS: BASOPHILS % (AUTO) 0.4 %; EOSINOPHILS # (AUTO) 0.1 10^3/uL (0.0-0.7); EOSINOPHILS % (AUTO) 1.1 %; HCT - HEMATOCRIT 39.6 % (42.0-52.0); HGB - HEMOGLOBIN 13.2 g/dL (14.0-18.0); LYMPHOCYTES # (AUTO) 1.8 10^3/uL (1.5-3.5); LYMPHOCYTES % (AUTO) 25.1 %; MEAN CORPUSCULAR HEMOGLOBIN 29.7 pg (27.0-31.0); MEAN CORPUSCULAR HGB CONC 33.3 g/dL (32.0-36.0); MEAN PLATELET VOLUME 10.4 fL (7.4-11.4); MONOCYTES # (AUTO) 0.5 10^3/uL (0.0-1.0); MONOCYTES % (AUTO) 6.6 %; NEUTROPHILS # (AUTO) 4.7 10^3/uL (1.5-6.6); NEUTROPHILS % (AUTO) 66.7 %; PLT - PLATELET COUNT 339 10^3/uL (130-450); RED BLOOD COUNT 4.45 10^6/uL (4.70-6.10); RED CELL DISTRIBUTION WIDTH 12.9 % (12.0-15.0)
[2021-05-01 21:31] LABS: ALBUMIN 4.5 g/dL (3.2-5.5); ALBUMIN/GLOBULIN RATIO 1.7 (1.0-2.2); BILIRUBIN,TOTAL 0.5 mg/dL (0.2-1.0); CALCIUM 9.7 mg/dL (8.5-10.3); CREATININE 0.6 mg/dL (0.6-1.2); TOTAL PROTEIN 7.1 g/dL (6.7-8.2)
[2021-05-01 21:42] LABS: THYROID STIMULATING HORMONE 0.82 uIU/mL (0.34-5.60)
== END 2021-05-01 23:59 | disposition home or self-care (01) ==
LOC: EDSEX → LAB.N 08:00
PROVIDERS: ATTEND Physician Assistant Medical
DX: R20.2 Paresthesia of skin (principal)
CPT/HCPCS: 36415; 80050; 82330; 82607

== ENCOUNTER 2021-05-16 11:42 | Outpatient (CLI) | payer OTHER | END 2021-05-16 11:43 | disposition home or self-care (01) | LOC: LAB.N 11:42 | PROVIDERS: ATTEND Registered Nurse | DX: G43.909 Migraine, unspecified, not intractable, without status migrainosus (principal); R20.2 Paresthesia of skin | CPT/HCPCS: 36415; 86038; 86140 ==

== ENCOUNTER → 2021-06-04 | Outpatient (CLI) | payer OTHER | LOC: LAB.N 08:00 | PROVIDERS: ATTEND Nurse Practitioner | DX: T58.94XA Toxic effect of carbon monoxide from unspecified source, undetermined, initial encounter (principal) | CPT/HCPCS: 81599; 82375 ==

== ENCOUNTER 2021-06-11 09:36 | Outpatient (CLI) | payer OTHER ==
--- NOTE | 2021-06-11 11:10 | CARDIAC PROCEDURE NOTE ---
Stress Test Report Service Date: 06/11/21 Service Time: 11:00 Ordering Provider: Serene Montes FNP-C Indication for Test: Assess mildly elevated troponin levels detected in the setting of upper right chest discomfort, tachycardia and possible dehydration. Significant Medical History: Migdalia has a history of migraine headaches, with intermittent use of Imitrex. She tells me that there has been concern for a home furnace dysfunction of unkn own duration with possible carbon monoxide exposure, that was corrected last week. 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 Thus her stress level is chronically increased. -Within this setting in late March she experienced episodic symptoms that included palpitations, reading of elevated heart rate on her iWatch and intermittent right upper chest discomfort, for which she was seen at our Emergency Department on 04/20/2021. Her EKG did not appear ischemic, but 3 separate measurements of troponin revealed mild elevation, in the range of 2123 (upper limit normal 14.8) during overnight observation. Rhythm monitoring revealed intermittent sinus tachycardia, with concern that some of these findings may have been due to mild dehydration secondary to recent acute GI illness. Some of these symptoms recurred periodically, but she states that since correction of the carbon monoxide problem with her furnace last week she has felt entirely at her normal baseline, with decrease in fatigue, normal heart rates on her iWatch and none of the nonspecific symptoms that were present at the time of her evaluation on April 20 and rarely following that date. Cardiac Risk Factors: Migdalia reports intermittent elevation of blood pressure without diagnosis of hypertension; she denies history of hyperlipidemia, diabetes, tobacco smoking ever and family history of coronary artery disease. Type of Stress Test: ETT with Myocardial Perfusion Imaging Procedure: -Exercise Treadmill Test- After signing informed consent, the patient underwent resting SPECT imaging and then performed treadmill exercise using a Rafiq protocol. The patient exercised for 7 minutes 20 seconds and achieved a peak heart rate of 174 (93 percent predicted maximum heart rate for age), and an estimated workload of 9.1 METS. The test was terminated due to fatigue/shortness of breath. Resting heart rate: 82 Peak heart rate: 174 Normal response to exercise. Resting BP: 134/81 Peak BP: 168/75 Normal response of systolic and diastolic BP to exercise. Rhythm during exercise: Sinus rhythm throughout. Symptoms: She denies chest discomfort, lightheadedness and paresthesias. EKG at rest showed normal sinus rhythm with mild sinus arrhythmia. EKG at peak stress showed >1.[address] depression in leads II, III, aVF and V5, assessed as meeting EKG criteria for borderline ischemia. In Recovery HR and BP returned normally to near baseline resting levels. Nuclear imaging performed at rest and with stress and interpretation will be reported separately. IAntwon MD, was present throughout this treadmill stress study and supervised it in its entirety. Summary: 1) Exercise tolerance moderately reduced for age and sex, as evidenced by JESSICA of 22.3%. 2) Normal resting EKG. 3) Adequate level of exercise was achieved on this treadmill stress test. 4) Normal BP response to exercise. 5) Borderline ischemic changes by EKG criteria were seen at peak stress. 6) Analysis of gated nuclear images reveals normal left ventricular size and systolic function; on-site SPECT analysis reveals a small stress-associated apical defect with imaging in the supine position that is not seen with prone imaging, with normal perfusion of the left ventricle at rest, findings most consistent with breast attenuation artifact in the supine position. Formal Radiology review concludes that the defect is present on imaging at stress (supine position) and at rest, with similar attribution to tissue artifact. See separate report for more detail. CONCLUSIONS: 1) Likely a low risk Rafiq protocol mycardial perfusion imaging study, given favorable hemodynamic response to exercise and no report of symptoms concerning for ischemia. Borderline ST depression could be due to high incidence of non- specific ST depression observed in women. 2) A small apical perfusion defect seen upon stress imaging in the supine position most likely represents breast attenuation artifact and does not suggest ischemia.
--- NOTE | 2021-06-11 16:20 | Nuclear Medicine Report ---
PROCEDURE: Rest and exercise myocardial perfusion SPECT with gated imaging and ejection fraction INDICATIONS: ELEVATED TROPONIN, CHEST PAIN RADIOPHARMACEUTICAL: 9.7 mCi Tc-99m Myoview IV at rest and 32.7 mCi Tc-99m Myoview IV at peak exerci se. [id number] was performed. TECHNIQUE: Radiopharmaceutical was injected at peak stress test, and also at rest. SPECT images wer e obtained. SPECT myocardial perfusion images were displayed in short axis, horizontal long axis, an d vertical long axis views. Gated images were reviewed using [employer] software. COMPARISON: None available. FINDINGS: Raw data: There is good myocardial labeling by radiotracer. No significant motion artifacts. Lung- to-heart ratio is 0.42 (normal is less than 0.46 for tetrafosmin tracer). Left ventricle function: Gated images demonstrate normal left ventricle wall thickening. No segment al wall motion abnormality. No transient ischemic dilation. The left ventricle resting end-diastolic volume is normal. Left ventricle stress ejection fraction is >70%; normal values are above 45%. Myocardial perfusion: There is a small, mild, primarily fixed defect in the distal anterior wall and apex, most likely secondary to breast attenuation and shifting breast artifacts. There is otherwise normal distribution of activity in the left and right ventricular myocardium. IMPRESSION: 1. Probably normal myocardial perfusion images. There is a small, mild, primarily fixed defect in the distal anterior wall and apex, most likely likely secondary to breast attenuation and shifting breas t artifacts. No convincing evidence for myocardial ischemia or infarct. 2. Moderate left ventricular volume and systolic function. 3. Please correlate with stress EKG result. PQRS ATTESTATIONS: Measure 322 - Is this imaging test primarily performed on a low-risk surgery patient for preoperative evaluation within 30 days preceding their low-risk non-cardiac surgery? Low-risk surgery is defined as cardiac or myocardial infarction less than 1%, including (but not limited to) endoscopic pr ocedures, superficial procedures, cataract surgery, and excisional breast surgery: Answer: No Measure 323 - Is this imaging test performed primarily for the monitoring of an asymptomatic patient who had percutaneous coronary intervention on the visit date or within 2 years of the visit date? An swer: No Measure 324 - Is this imaging test performed primarily for the initial detection and risk assessment on an asymptomatic, low coronary heart disease patient? Low CHD risk definition = clinicians should consider the maximum number of available patient factors used to estimate risk based on [place] (A TP III criteria), typically age, gender, diabetes, smoking status, and use of blood pressure medicati on, and integrate age appropriate estimates for missing elements, such as LDL or standard blood press ure. Answer: No Reviewed by: Alton Royal MD on 06/11/2021 4:19 PM PDT Approved by: Alton Royal MD on 06/11/2021 4:19 PM PDT Station ID: [id number]
== END 2021-06-11 09:37 | disposition home or self-care (01) ==
LOC: DI 09:36
PROVIDERS: ATTEND Registered Nurse
DX: R07.89 Other chest pain (principal); R79.89 Other specified abnormal findings of blood chemistry; R00.2 Palpitations
CPT/HCPCS: 78452; 93017; A9500

== ENCOUNTER 2021-06-11 09:38 | Outpatient (CLI) | payer OTHER ==
--- NOTE | 2021-06-11 13:35 | CT Report ---
PROCEDURE: HEAD WO INDICATIONS: PARESTHESIA TECHNIQUE: Noncontrast 4.5 mm thick angled axial sections acquired from the foramen magnum to the vertex. For r adiation dose reduction, the following was used: automated exposure control, adjustment of mA and/or kV according to patient size. COMPARISON: None. FINDINGS: Image quality: Excellent. CSF spaces: Basal cisterns are patent. No extra-axial fluid collections. Ventricles are normal in size and shape. Brain: No midline shift. No intracranial masses or hemorrhage. Carpenter-white matter interface is norm al. Skull and face: Calvarium and visualized facial bones are intact, without suspicious lesions. Sinuses: Visualized sinuses and mastoids are clear. IMPRESSION: No acute intracranial finding. Contrast-enhanced MRI could be considered for further eval uation. Reviewed by: Abhishek Bhandari MD on 06/11/2021 1:33 PM PDT Approved by: Abhishek Bhandari MD on 06/11/2021 1:33 PM PDT Station ID: [id number]
== END 2021-06-11 09:39 | disposition home or self-care (01) ==
LOC: DI 09:38
PROVIDERS: ATTEND Registered Nurse
DX: R20.2 Paresthesia of skin (principal); R07.89 Other chest pain; R79.89 Other specified abnormal findings of blood chemistry; R00.2 Palpitations
CPT/HCPCS: 93017

== ENCOUNTER 2021-11-05 10:35 | Outpatient (CLI) | payer OTHER ==
[2021-11-05 12:51] LABS: AMYLASE 55 U/L (28-100); LIPASE 47 U/L (22-51)
== END 2021-11-05 10:36 | disposition home or self-care (01) ==
LOC: LAB.N 10:35
PROVIDERS: ATTEND Registered Nurse
DX: R10.9 Unspecified abdominal pain (principal); D64.9 Anemia, unspecified; R19.7 Diarrhea, unspecified
CPT/HCPCS: 36415; 82150; 83690

== ENCOUNTER 2021-11-06 08:00 | Outpatient (CLI) | payer OTHER | END 2021-11-06 23:59 | disposition home or self-care (01) | LOC: LAB.N 08:00 | PROVIDERS: ATTEND Registered Nurse | DX: D64.9 Anemia, unspecified (principal); R19.7 Diarrhea, unspecified | CPT/HCPCS: 81599; 83631; 83993 ==

== ENCOUNTER 2022-02-21 12:11 | Outpatient (CLI) | payer OTHER ==
[2022-02-21 12:35] LABS: HCT - HEMATOCRIT 38.9 % (37.0-47.0); HGB - HEMOGLOBIN 12.7 g/dL (12.0-16.0); MEAN CORPUSCULAR HEMOGLOBIN 28.7 pg (27.0-31.0); MEAN CORPUSCULAR HGB CONC 32.6 g/dL (32.0-36.0); MEAN CORPUSCULAR VOLUME 87.8 fL (81.0-99.0); MEAN PLATELET VOLUME 9.1 fL (7.9-10.8); RED BLOOD COUNT 4.43 10^6/uL (4.20-5.40); RED CELL DISTRIBUTION WIDTH 13.2 % (12.0-15.0); WHITE BLOOD COUNT 6.9 x10^3/uL (4.8-10.8)
[2022-02-21 14:22] LABS: CRP - C-REACTIVE PROTEIN 1.3 mg/dL (0-1.0); URIC ACID 4.3 mg/dL (2.6-7.2)
[2022-02-21 14:29] LABS: RHEUMATOID FACTOR NEGATIVE (Negative)
--- NOTE | 2022-02-21 15:34 | XRAY Report ---
PROCEDURE: Foot 2 View BILAT INDICATIONS: SCOLIOSIS,JOINT PAIN,PARETHESIA,TORTICOLLIS TECHNIQUE: 2 views of the bilateral feet were acquired. COMPARISON: None FINDINGS: Bones: No fractures or dislocations. No suspicious bony lesions. Soft tissues: No tibiotalar joint effusion. Achilles tendon appears normal. IMPRESSION: No evidence of acute bony abnormality of the feet. Reviewed by: Thang Beverly MD on 02/21/2022 3:33 PM PST Approved by: Thang Beverly MD on 02/21/2022 3:33 PM [facility] Station ID: [id number]
--- NOTE | 2022-02-21 15:35 | XRAY Report ---
PROCEDURE: Hand 2 View BILAT INDICATIONS: SCOLIOSIS,JOINT PAIN,PARETHESIA,TORTICOLLIS TECHNIQUE: 2 views of the hand(s) acquired. COMPARISON: None FINDINGS: Bones: No fractures or dislocations. No suspicious bony lesions. Soft tissues: No suspicious soft tissue calcifications. IMPRESSION: Unremarkable bilateral hand films. Reviewed by: Thang Beverly MD on 02/21/2022 3:34 PM [facility] Approved by: Thang Beverly MD on 02/21/2022 3:34 PM [facility] Station ID: [id number]
--- NOTE | 2022-02-21 16:21 | XRAY Report ---
PROCEDURE: Cervical Spine 2 View INDICATIONS: SCOLIOSIS,JOINT PAIN,PARETHESIA,TORTICOLLIS TECHNIQUE: 3 views of the cervical spine were acquired. COMPARISON: CTA neck 10/22/2020. FINDINGS: Bones: No acute fractures or dislocations to the C7 level. The lateral masses of C1 appear intact o n the odontoid view. No suspicious bony lesions. Straightening of the normal cervical lordosis may be secondary to positioning or muscle spasm. Mild degenerative endplate changes are seen. Small ossif ication is seen at the anterior-inferior endplate of C5 that may be degenerative, congenital, or seco ndary to prior trauma. The appearance is unchanged when compared to the CT from 10/22/2020. Mild facet hypertrophy and uncovertebral joint hypertrophy. Soft tissues: No prevertebral soft tissue swelling. IMPRESSION: 1.Mild spondylosis. 2.Straightening of the cervical spine may be secondary to positioning or muscle spasm. Reviewed by: Marco Starkey MD on 02/21/2022 4:20 PM PST Approved by: Marco Starkey MD on 02/21/2022 4:20 PM PST Station ID: [id number]
--- NOTE | 2022-02-21 16:26 | XRAY Report ---
PROCEDURE: Thoracic Spine 2 View INDICATIONS: SCOLIOSIS,JOINT PAIN,PARETHESIA,TORTICOLLIS TECHNIQUE: 2 views of the thoracic spine were acquired. COMPARISON: None. FINDINGS: Bones: No acute fractures or dislocations. No suspicious bony lesions. 12 pairs of ribs are noted, and appear intact where visualized. Minimal anterior endplate changes within the midthoracic spine. Soft tissues: No paravertebral stripe thickening. IMPRESSION: No acute osseous abnormality. No significant scoliosis If symptoms persist or there is continued clin ical concern, further evaluation with MRI or CT may be helpful. Reviewed by: Marco Starkey MD on 02/21/2022 4:25 PM PST Approved by: Marco Starkey MD on 02/21/2022 4:25 PM PST Station ID: [id number]
--- NOTE | 2022-02-21 16:28 | XRAY Report ---
PROCEDURE: Lumbar Spine 2 View INDICATIONS: SCOLIOSIS TECHNIQUE: 2 views of the lumbar spine were acquired. COMPARISON: None. FINDINGS: Bones: 5 [id number] vertebrae are present. There is normal bony alignment. No vertebral body compression fractures. No suspicious bony lesions. Mild facet hypertrophy is seen at multiple level s. Soft tissues: Overlying bowel gas pattern is normal. No suspicious soft tissue calcifications. IMPRESSION: Mild spondylosis. No acute osseous abnormality. If symptoms persist or there is continue d clinical concern, further evaluation with MRI or CT may be helpful. Reviewed by: Marco Starkey MD on 02/21/2022 4:27 PM PST Approved by: Marco Starkey MD on 02/21/2022 4:27 PM PST Station ID: [id number]
[2022-02-22 17:08] LABS: ANTI-DNA (DS) AB QN <1 IU/mL (0-9)
[2022-02-23 17:07] LABS: CYCLIC CITRULLINATED PEP IGG/A 8 units (0-19)
== END 2022-02-21 12:12 | disposition home or self-care (01) ==
LOC: DI 12:11
PROVIDERS: ATTEND Registered Nurse
DX: M47.812 Spondylosis without myelopathy or radiculopathy, cervical region (principal); M47.816 Spondylosis without myelopathy or radiculopathy, lumbar region; M25.60 Stiffness of unspecified joint, not elsewhere classified; M25.50 Pain in unspecified joint
CPT/HCPCS: 36415; 84550; 85027; 85651; 86140; 86200; 86225; 86430